=== PATIENT | female | born 1965 ===

== ENCOUNTER 2017-06-16 08:57 | Emergency (ER) | payer OTHER ==
[2017-06-16 09:13] VITALS: RESP 18; O2SAT 98
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
[2017-06-16 10:06] VITALS: BP 142/85; PULSE 79; TEMP 98.2
== END 2017-06-16 10:07 | disposition home or self-care (01) ==
LOC: C.ER 08:57
DX: S13.4XXA Sprain of ligaments of cervical spine, initial encounter (principal); V49.9XXA Car occupant (driver) (passenger) injured in unspecified traffic accident, initial encounter